=== PATIENT | male | born 1980 | race Caucasian/White ===

== ENCOUNTER 2017-11-18 20:48 | Emergency (ER) | payer MEDICAID ==
--- NOTE | 2017-11-18 21:49 | EDM.PDOC ---
ED HPI GENERAL MEDICAL PROBLEM - General Chief Complaint: Bite:Animal, Insect Stated Complaint: DOG BITE SAME DOG PRIOR Time Seen by Provider: 11/18/17 21:07 Source of Information: Reports: Patient, EMS History Limitations: Reports: No Limitations - History of Present Illness INITIAL COMMENTS - FREE TEXT/NARRATIVE: Patient is a 37-year-old male who presents to the ED complaining of a dog bite to the right forearm proximal to the elbow and also dorsal aspect of the left hand and index finger. Patient was attempting to tie up a [place] Crowe that has previously bitten another individual. The [place] Crowe bit the other individual while food was being aken away from it. Thus provoked attack. Patient states the dog is old and very temperamental. Dog is up-to-date with vaccinations although this was not documented. Per patient the vet was not able to administer the vaccination and the owner consulting engineer did. The dog is able to be quarantined. Patient has pain to the soft tissues. He has no bony tenderness noted. Able to move all joints of the affected extremities. Patient's tetanus status is not up-to-date. Pain is minimal as we speak. Bleeding controlled. Of note patient is on septra for a laceration to the MCP of the thumb. He has approximately 5 days left. Otherwise he has no additional complaints. Treatments PULVERIZER TENDER: Reports: Other (see below) Other Treatments PULVERIZER TENDER: cleaned wound with antiseptic wipe Right Arm Pain Score (Numeric/FACES): 3 Left 2-Index finger Pain Score (Numeric/FACES): 3 - Related Data Allergies Allergy/AdvReac Type Severity Reaction Status Date / Time No Known Allergies Allergy Verified 11/18/17 21:13 Home Meds: Home Meds Lisinopril [Prinivil] 20 mg PO DAILY 11/18/17 [History] Sulfamethoxazole/Trimethoprim [Septra] 1 each PO BID #14 tablet 11/18/17 [Rx] Past Medical History - Past Health History Medical/Surgical History: Denies Medical/Surgical History Cardiovascular History: Reports: Hypertension Social & Family History - Family History Family Medical History: Noncontributory - Tobacco Use Smoking Status *Q: Never Smoker Second Hand Smoke Exposure: Yes - Caffeine Use Caffeine Use: Reports: Soda, Tea - Recreational Drug Use Recreational Drug Use: No ED ROS GENERAL - Review of Systems Review Of Systems: ROS reveals no pertinent complaints other than HPI. ED EXAM, ANIMAL BITE - Physical Exam Exam: See Below Exam Limited By: No Limitations General Appearance: Alert, WD/WN, No Apparent Distress Ears: Hearing Grossly Normal Nose: Normal Inspection Throat/Mouth: Normal Voice, No Airway Compromise Neck: Normal Inspection, Supple Respiratory/Chest: No Respiratory Distress, No Accessory Muscle Use Peripheral Pulses: 4+: Radial (L), Radial (R) Extremities: Other (Right arm: Patient has multiple small puncture ignacio to the posterior aspect of the right forearm proximal to the elbow not involving the elbow. Soft tissue swelling. No bleeding present. No foreign objects noted. No bony point tenderness. Patient has full range of motion the elbow and the wrist. No other bite wounds noted to this extremity. Left hand: Patient is a bite wound noted to the proximal phalanx of the second finger on the dorsal aspect. Minimal tenderness present. Also has some puncture wounds noted to the dorsal aspect of the left hand with minimal tenderness on palpation. Bleeding is controlled. No foreign object present. Patient has full range of motion of the wrist, and fingers. Patient has a old laceration noted to the dorsal aspect at the MCP in the late stages of healing. He is on an antibiotic already.) Neurological: Alert, Oriented, CN II-XII Intact, Normal Cognition, No Motor/ Sensory Deficits Psychiatric: Normal Affect, Normal Mood Skin Exam: Normal Color, Warm/Dry Course - Vital Signs Last Recorded V/S: Last Vital Signs Temp 97.7 F 11/18/17 21:06 Pulse 88 11/18/17 21:06 Resp BP 127/82 11/18/17 21:06 Pulse Ox 97 11/18/17 21:06 - Re-Assessments/Exams Free Text/Narrative Re-Assessment/Exam: Soft tissue wounds cleansed per nursing staff. No imaging required. Patient is already on Septra. This should be adequate to cover a dog bite. Will discharge patient home with instructions as documented. Departure - Departure Time of Disposition: 21:54 Disposition: Home, Self-Care 01 Condition: Good Clinical Impression: Dog bite of extremity Dog bite Qualifiers: Encounter type: initial encounter Qualified Code(s): W54.0XXA - Bitten by dog, initial encounter - Discharge Information Prescriptions: Sulfamethoxazole/Trimethoprim [Septra] 1 each PO BID #14 tablet Instructions: Animal Bite Referrals: Isai Arizmendi MD [Primary Care Provider] - Additional Instructions: Take the full course of antibiotic as prescribed. Cleanse site twice daily with soap and water, pat dry, reapply triple antibiotic ointment, and dressing. Do not soak wound. Keep it clean and dry. Utilize Tylenol and ibuprofen as needed for any discomfort. Return to ED if he developed any new or worsening symptoms. [facility] requires quarantine at [facility] since rabies vaccination is not documented. He had 10 days to start prophylactic rabies treatment if required.
== END 2017-11-18 22:43 | disposition home or self-care (01) ==
LOC: JD.ED 20:48
DX: S51.851A Open bite of right forearm, initial encounter (principal); S61.432A Puncture wound without foreign body of left hand, initial encounter; I10 Essential (primary) hypertension; W54.0XXA Bitten by dog, initial encounter
CPT/HCPCS: 99283

== ENCOUNTER 2018-07-10 10:34 | Emergency (ER) | payer MEDICAID ==
--- NOTE | 2018-07-10 11:09 | EDM.PDOC ---
ED HPI GENERAL MEDICAL PROBLEM - General Chief Complaint: Lower Extremity Injury/Pain Stated Complaint: L FOOT INJURY Time Seen by Provider: 07/10/18 11:10 Source of Information: Reports: Patient History Limitations: Reports: No Limitations - History of Present Illness INITIAL COMMENTS - FREE TEXT/NARRATIVE: Patient is a 37-year-old male who presents ED complaining of left lateral foot pain. Patient states on Tuesday while stepping off a bobcat in the bucket he slipped hitting the left side of his foot. Pain progressively got worse over the course of the weekend. Today he has increasing pain with weightbearing and palpation. No bruising, no significant swelling, no pain noted to the remaining parts of the foot, toes, ankle, tib-fib. No sensory deficits noted. He has not taken anything for the pain as of today. Left Feet Pain Score (Numeric/FACES): 2 - Related Data Allergies Allergy/AdvReac Type Severity Reaction Status Date / Time No Known Allergies Allergy Verified 07/10/18 10:43 Home Meds: Home Meds Lisinopril [Prinivil] 20 mg PO DAILY 11/18/17 [History] Past Medical History - Past Health History Medical/Surgical History: Denies Medical/Surgical History HEENT History: Reports: Impaired Vision Cardiovascular History: Reports: Hypertension Social & Family History - Family History Family Medical History: Noncontributory - Tobacco Use Smoking Status *Q: Never Smoker - Caffeine Use Caffeine Use: Reports: Soda - Recreational Drug Use Recreational Drug Use: No Review of Systems - Review of Systems Review Of Systems: ROS reveals no pertinent complaints other than HPI. ED EXAM, GENERAL - Physical Exam Exam: See Below Exam Limited By: No Limitations General Appearance: Alert, WD/WN, No Apparent Distress Ears: Hearing Grossly Normal Nose: Normal Inspection Throat/Mouth: Normal Inspection, Normal Voice, No Airway Compromise Neck: Normal Inspection, Supple Respiratory/Chest: No Respiratory Distress, No Accessory Muscle Use Cardiovascular: Normal Peripheral Pulses, Regular Rate, Rhythm Peripheral Pulses: 2+: Posterior Tibial (L) Extremities: Other (On examination of the left foot no swelling, no bony abnormalities, no redness, no rash present. With palpation there is pain along the fifth metatarsal and MTP. No pain to the left fifth toe with palpation. He is able to flex and extend the toes with no difficulties. Pain noted to the plantar aspect of the foot along the fifth metatarsal and MTP. No pain noted with palpation the radial aspects of the foot, ankle, tib-fib) Neurological: Alert, Oriented, CN II-XII Intact, Normal Cognition, No Motor/ Sensory Deficits Psychiatric: Normal Affect, Normal Mood Skin Exam: Warm, Dry, Intact, Normal Color, No Rash Course - Vital Signs Last Recorded V/S: Last Vital Signs Temp 96.9 F 07/10/18 10:44 Pulse 71 07/10/18 10:44 Resp 18 07/10/18 10:44 BP 148/95 H 07/10/18 10:44 Pulse Ox 97 07/10/18 10:44 - Re-Assessments/Exams Free Text/Narrative Re-Assessment/Exam: Will obtain x-ray of the left foot. Suspect contusion/sprain. X-ray of the left foot reviewed with Dr. Mcneil with no acute bony abnormalities noted. Final interpretation is pending. Patient does have a walking boot and crutches at home. Discharge instructions as documented. Departure - Departure Time of Disposition: 11:58 Disposition: Home, Self-Care 01 Condition: Good Clinical Impression: Contusion of foot, left Qualifiers: Encounter type: initial encounter Qualified Code(s): S90.32XA - Contusion of left foot, initial encounter - Discharge Information Instructions: Foot Sprain, Foot Contusion Referrals: Isai Arizmendi MD [Primary Care Provider] - Forms: ED Department Discharge Additional Instructions: You are to be nonweightbearing, toe-touch only, utilize crutches to ambulate. Elevate when able to reduce any swelling and pain. Apply ice to the affected area 3-4 times a day, 20 minutes in duration, do not apply ice directly on the skin. Utilize Tylenol and ibuprofen in alternating fashion for pain. Advance weight as tolerated over the next 3-5 days. Follow-up with orthopedic surgeon of your choice if pain persists past 7-10 days. Return to the ED if you develop any new or worsening symptoms.
--- NOTE | 2018-07-10 12:05 | CR ---
Left foot: Four views of the left foot were obtained. Comparison: No previous study. Small plantar spur is seen. Mild bunion deformity is seen. No acute fracture, dislocation or other bony abnormality is seen. Impression: 1. Incidental findings as noted above. Diagnostic code #2
== END 2018-07-10 12:10 | disposition home or self-care (01) ==
LOC: JD.ED 10:34
DX: S90.32XA Contusion of left foot, initial encounter (principal); I10 Essential (primary) hypertension; Z79.899 Other long term (current) drug therapy; W22.8XXA Striking against or struck by other objects, initial encounter
CPT/HCPCS: 73630-26-LT; 73630-LT; 99282; 99283

== ENCOUNTER 2019-08-27 19:12 | Emergency (ER) | payer SELFPAY ==
[2019-08-27] MEDS ORDERED: HYDROmorphone 0.5 MG/0.5 ML Syringe IVPUSH ONE ×2 (21:28→23:02)
[2019-08-27] MEDS ORDERED: Ondansetron 4 MG/2 ML SDV IVPUSH ONE (21:28)
[2019-08-27] MEDS ORDERED: Sodium Chloride 0.9% 1,000 ML IV SCH (21:30)
--- NOTE | 2019-08-27 21:38 | EDM.PDOC ---
ED HPI GENERAL MEDICAL PROBLEM - General Chief Complaint: Abdominal Pain Stated Complaint: SIDE PAIN Time Seen by Provider: 08/27/19 21:10 Source of Information: Reports: Patient, Family () History Limitations: Reports: No Limitations - History of Present Illness INITIAL COMMENTS - FREE TEXT/NARRATIVE: Mr. Jha is a very pleasant 38-year-old man with a past medical history significant for obesity, chronic lower back pain, depression, and hypertension, who states that he has had bright red blood, only when he wipes, with no blood in the toilet, twice over the past week, with the most recent episode about 3 days ago. He states that he had watery diarrhea for 3 days, but it is now normal. No recent constipation. He has had generalized malaise and a fever on and off for the past 4 days, with a Tmax of 103 degrees on Tuesday morning, 2019. He has not had rhinorrhea, a cough, a sore throat, or an earache. No abdominal pain or urinary symptoms. No lightheadedness or dyspnea. He now presents to the ED after coughing earlier tonight, inducing right upper quadrant pain. It resolved, but he coughed again, re-inducing the same right upper quadrant pain which has persisted ever since. It is constant, and sharp in character. It is made worse with certain movements, but is present even if he remains still. Prior similar symptoms. The patient did not take any [id number] or home remedies prior to coming to the ED. His last solid and liquid oral intake was around 18:45. The patient's PCP is Dr. Isai Arizmendi. He did not receive an influenza vaccine, and declined an offer to receive one here today. Right Abdomen Pain Score (Numeric/FACES): 8 - Related Data Allergies Allergy/AdvReac Type Severity Reaction Status Date / Time No Known Allergies Allergy Verified 07/10/18 10:43 Home Meds: Home Meds lisinopriL [Prinivil] 20 mg PO DAILY 11/18/17 [History] Cyclobenzaprine [Flexeril] 10 mg PO BEDTIME PRN 08/27/19 [History] DULoxetine [Cymbalta] 30 mg PO DAILY 08/27/19 [History] Acetaminophen/HYDROcodone [Canones 325-5 MG] 1 - 2 tab PO Q6H PRN #24 tablet 08/28 [Rx] Ondansetron [Zofran ODT] 1 tab PO Q8H PRN #10 tab.dis 08/28/19 [Rx] Past Medical History HEENT History: Reports: Impaired Vision Cardiovascular History: Reports: Hypertension Psychiatric History: Reports: Depression Endocrine/Metabolic History: Reports: Obesity/BMI 30+ - Past Surgical History Musculoskeletal Surgical History: Reports: Other (See Below) (Metal foreign body removed from left forearm) Social & Family History - Family History Family Medical History: Noncontributory - Tobacco Use Smoking Status *Q: Never Smoker - Caffeine Use Caffeine Use: Reports: Soda - Alcohol Use Alcohol Use History: Yes Alcohol Use Frequency: Socially - Recreational Drug Use Recreational Drug Use: No - Living Situation & Occupation Living situation: Reports: , with Spouse, with Family (3 kids), Other ( Nanny) Occupation: 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 Musculoskeletal: Reports: Back Pain ED EXAM, GI/ABD - Physical Exam Exam: See Below Exam Limited By: No Limitations General Appearance: Alert, WD/WN, No Apparent Distress Eyes: Bilateral: Normal Appearance, EOMI Ears: Normal External Exam, Hearing Grossly Normal Nose: Normal Inspection Throat/Mouth: Normal Inspection, Normal Lips, Normal Voice, No Airway Compromise Head: Atraumatic, Normocephalic Neck: Normal Inspection, Full Range of Motion Respiratory/Chest: No Respiratory Distress, Lungs Clear, Normal Breath Sounds, No Accessory Muscle Use, Chest Non-Tender (including the lower right ribs). No : Decreased Breath Sounds, Crackles, Rhonchi, Wheezing, Stridor, Pleural Rub, Prolonged Expiration Cardiovascular: Normal Peripheral Pulses, Regular Rate, Rhythm, No Gallop, No JVD, No Murmur, No Rub GI/Abdominal Exam: Normal Bowel Sounds, Soft, No Organomegaly, No Distention, No Abnormal Bruit, No Mass, Tender (Right upper quadrant only. Nontender elsewhere. Black sign present.) (Male) Exam: Deferred Rectal (Males) Exam: Normal Exam, Normal Rectal Tone, Heme - Stool. No: Tenderness Back Exam: Normal Inspection, Full Range of Motion, Other (No tenderness to palpation inferior to his right scapula, where he indicates the pain radiates to ). No: CVA Tenderness (L), CVA Tenderness (R) Extremities: Normal Inspection, Normal Range of Motion, No Pedal Edema, Normal Capillary Refill Neurological: Alert, Oriented, Normal Cognition, No Motor/Sensory Deficits Psychiatric: Normal Affect Skin Exam: Warm, Dry, Intact, Normal Color, No Rash Course - Vital Signs Last Recorded V/S: Last Vital Signs Temp 36.3 C 08/27/19 19:22 Pulse 89 08/27/19 19:22 Resp 18 08/27/19 19:22 BP 183/99 H 08/27/19 19:22 Pulse Ox 95 08/27/19 19:22 - Orders/Labs/Meds Orders: Active Orders 24 hr Category Date Time Status Hemoccult [Fecal Occult Blood Collection] [RC] Care 08/27/19 21:37 Active ASDIRECTED Abdomen Pelvis w Cont [CT] Stat Exams 08/27/19 21:27 Taken Sodium Chloride 0.9% [Normal Saline] 1,000 ml Med 08/27/19 21:30 Active IV ASDIRECTED Medication Orders Sodium Chloride (Normal Saline) 1,000 mls @ 150 mls/hr IV ASDIRECTED [place] Last Admin: 08/27/19 21:41 Dose: 150 mls/hr Labs: Laboratory Tests 08/27/19 08/27/19 Range/Units 20:18 20:18 WBC 8.50 (4.23-9.07) K/mm3 RBC 4.68 (4.63-6.08) M/mm3 Hgb 14.1 (13.7-17.5) gm/dl Hct 41.7 (40.1-51.0) % MCV 89.1 D (79.0-92.2) fl MCH 30.1 (25.7-32.2) pg MCHC 33.8 (32.2-35.5) g/dl RDW Std Deviation 42.5 (35.1-43.9) fL Plt Count 303 (163-337) K/mm3 MPV 9.5 (9.4-12.3) fl Neut % (Auto) 59.9 (34.0-67.9) % Lymph % (Auto) 29.4 (21.8-53.1) % [place] % (Auto) 8.4 (5.3-12.2) % Eos % (Auto) 1.3 (0.8-7.0) Baso % (Auto) 0.6 (0.1-1.2) % Neut # (Auto) 5.10 (1.78-5.38) K/mm3 Lymph # (Auto) 2.50 (1.32-3.57) K/mm3 [place] # (Auto) 0.71 (0.30-0.82) K/mm3 Eos # (Auto) 0.11 (0.04-0.54) K/mm3 Baso # (Auto) 0.05 (0.01-0.08) K/mm3 Sodium 140 (136-145) mEq/L Potassium 3.8 (3.5-5.1) mEq/L Chloride 100 (98-107) mEq/L Carbon Dioxide 26 (21-32) mEq/L Anion Gap 17.8 H (5-15) BUN 12 (7-18) mg/dL Creatinine 1.0 (0.7-1.3) mg/dL Est Cr Clr Drug Dosing 101.39 mL/min Estimated GFR (MDRD) > 60 (>60) mL/min BUN/Creatinine Ratio 12.0 L (14-18) Glucose 160 H (74-106) mg/dL Calcium 9.5 (8.5-10.1) mg/dL Total Bilirubin 0.2 (0.2-1.0) mg/dL AST 18 (15-37) U/L ALT 57 (16-63) U/L Alkaline Phosphatase 60 (46-116) U/L Total Protein 8.4 H (6.4-8.2) g/dl Albumin 4.3 (3.4-5.0) g/dl Globulin 4.1 gm/dL Albumin/Globulin Ratio 1.1 (1-2) Meds: Medications Generic Name Dose Route Start Last Admin Trade Name Freq PRN Reason Stop Dose Admin Sodium Chloride 1,000 mls @ 150 mls/hr 08/27/19 21:30 08/27/19 21:41 Normal Saline IV 150 mls/hr ASDIRECTED [place] Administration Discontinued Medications Generic Name Dose Route Start Last Admin Trade Name Freq PRN Reason Stop Dose Admin Diatrizoate Meglum/Diatrizoate Sod 90 ml 08/27/19 22:44 08/27/19 22:59 Gastrografin 37% PO 08/27/19 22:45 90 ml ONETIME ONE Administration Hydromorphone HCl 0.5 mg 08/27/19 21:28 08/27/19 21:43 Dilaudid IVPUSH 08/27/19 21:29 0.5 mg ONETIME ONE Administration Hydromorphone HCl 0.5 mg 08/27/19 23:02 08/27/19 23:12 Dilaudid IVPUSH 08/27/19 23:03 0.5 mg ONETIME ONE Administration Iopamidol 100 ml 08/27/19 22:44 08/27/19 22:59 Isovue-300 (61%) IVPUSH 08/27/19 22:45 100 ml ONETIME ONE Administration Ondansetron HCl 4 mg 08/27/19 21:28 08/27/19 21:41 Zofran IVPUSH 08/27/19 21:29 4 mg ONETIME ONE Administration - Re-Assessments/Exams Free Text/Narrative Re-Assessment/Exam: 08/27/19 21:29 As above, the patient developed right upper quadrant pain that radiates through to his right infrascapular area when he coughed. It resolved, only to recur and persist after he coughed a second time. On examination, he is tender to his right upper quadrant, and nontender elsewhere. Additionally, his Black sign is present. He can identify the area of radiation infrascapularly on the right, but has no tenderness there. His presentation is very suspicious for cholecystitis. I am therefore recommending that we check some blood work and a CT scan of his abdomen and pelvis with oral and IV contrast, not only to be certain that he does not have an abdominal wall hematoma, but also to rule out other potential causes. We will also check an influenza swab, given the patient 's report of recent history. In the meantime, the patient will receive a half dose of Dilaudid - his tells me that he does not do well with pain medications, along with IV Zofran and IV fluid. 08/27/19 22:33 The patient CBC is unremarkable. His CMP is remarkable for an anion gap slightly elevated at 17.8, but with a bicarbonate normal at 26. His blood glucose is elevated at 160, with the remainder of his CMP being unremarkable. His influenza swab returned negative. 08/28/19 00:10 CT of the abdomen and pelvis with oral and IV contrast as read by [facility] as "No sign of acute intra-abdominal pathology." 08/28/19 00:23 Test results discussed with the patient and his . As above, zaynab's work- up was unremarkable, with the exception of a blood glucose of 160. I suspect that the patient is suffering from biliary colic, a suspicion buttressed by the fact that his CT scan was negative, ruling out other potential causes. The patient will be discharged home with prescriptions for Canones and Zofran. I am recommending that he eat as low-fat a diet as he can tolerate. I will refer him to Dr. Trejo for further evaluation that will likely include an ultrasound of the right upper quadrant and a HIDA scan. With respect to the patient's elevated blood glucose, either has diabetes or prediabetes. I will direct the patient to the [place] [employer] website so that he can learn about and apply a low glycemic index diet, and have him follow-up with his PCP for a HgbA1c. Departure - Departure Time of Disposition: 00:25 Disposition: Home, Self-Care 01 Condition: Good Clinical Impression: Right upper quadrant abdominal pain of unknown etiology, Hyperglycemia - Discharge Information *PRESCRIPTION DRUG MONITORING PROGRAM REVIEWED*: Not Applicable *COPY OF PRESCRIPTION DRUG MONITORING REPORT IN PATIENT [facility]: Not Applicable Prescriptions: Acetaminophen/HYDROcodone [Canones 325-5 MG] 1 - 2 tab PO Q6H PRN #24 tablet PRN Reason: Pain (Severe 7-10) Ondansetron [Zofran ODT] 1 tab PO Q8H PRN #10 tab.dis PRN Reason: Nausea/Vomiting Referrals: Isai Arizmendi MD [Primary Care Provider] - Willie Trejo MD [Physician] - Forms: ED Department Discharge Additional Instructions: You were seen in the emergency room for upper right abdominal pain radiating through to your mid right back, after coughing, along with a fever since Tuesday morning. Work-up in the ER included blood work, an influenza swab, and a CT scan of your abdomen and pelvis with oral and IV contrast. Your blood work found your blood sugar to be elevated at 160. Otherwise, your work-up was entirely unremarkable. You do not have influenza. You do not have an abdominal wall hematoma. Based on your history, physical exam, and ER tests, your abdominal pain is most likely due to biliary colic. As discussed, diagnosing biliary disease can be difficult, even if you have severe disease. More testing is necessary. We recommend that you eat a low-fat diet as you can tolerate. Stay adequately hydrated. You may take 1 to 2 tablets of the opioid pain reliever Canones up to every 6 hours, as needed for pain. If you take Canones, do not drive or operate heavy machinery for 12 hours afterwards. Canones may cause constipation, so consider taking a stool softener. You may dissolve 1 tablet of the anti-nausea medicine Zofran on your tongue up to every 8 hours, as needed for nausea/vomiting. Follow-up with the Surgeon Dr. Willie Trejo at the next available appointment , for further evaluation of your gallbladder. As discussed, your elevated blood sugar indicates that you either have prediabetes or real diabetes. We recommend that you go to the [place] [employer] website and look under the section "Nutrition" to learn about and start eating a diabetic diet, also known as a low glycemic index diet. Please follow-up with your PCP, Dr. Isai Arizmendi at the next available appointment, for further evaluation of your high blood sugar. If any other problems, please do not hesitate to return to the ER. Sepsis Event Note - Evaluation Sepsis Screening Result: No Definite Risk - Focused Exam Vital Signs: Vital Signs Temp Pulse Resp BP Pulse Ox 08/27/19 19:22 36.3 C 89 18 183/99 H 95 Date Exam was Performed: 08/28/19 Time Exam was Performed: 00:10 - My Orders Last 24 Hours: My Active Orders 08/27/19 21:27 Abdomen Pelvis w Cont [CT] Stat 08/27/19 21:30 Sodium Chloride 0.9% [Normal Saline] 1,000 ml IV ASDIRECTED 08/27/19 21:37 Hemoccult [Fecal Occult Blood Collection] [RC] ASDIRECTED - Assessment/Plan Last 24 Hours: My Active Orders 08/27/19 21:27 Abdomen Pelvis w Cont [CT] Stat 08/27/19 21:30 Sodium Chloride 0.9% [Normal Saline] 1,000 ml IV ASDIRECTED 08/27/19 21:37 Hemoccult [Fecal Occult Blood Collection] [RC] ASDIRECTED
[2019-08-27] MEDS ORDERED: Diatrizoate Meglumine/Diatrizoate Sodium 37% 120 ML Bottle PO ONE (22:44)
[2019-08-27] MEDS ORDERED: Iopamidol 612 MG/ML 100 ML Bottle IVPUSH ONE (22:44)
[2019-08-28] MEDS ORDERED: HYDROmorphone 1 MG/ML Syringe IVPUSH ONE (00:23)
--- NOTE | 2019-08-28 07:20 | CT ---
CT abdomen and pelvis Technique: Multiple axial sections were obtained from above the dome of the diaphragm inferiorly through the pubic symphysis. Intravenous and oral contrast has been given. Delayed images were also obtained through the pelvis. Comparison: No prior abdominal imaging. Findings: Visualized lung bases show minimal atelectasis. Nothing acute is appreciated. Liver contains fatty infiltration without focal abnormality. Spleen appears within normal limits. Adrenal glands show no nodule. Pancreas is within normal limits. Gallbladder contains no calcified gallstones. Kidneys show symmetric contrast enhancement. Small cyst is noted within the lower right kidney. This abnormality measures 6 mm and is too small to obtain accurate Hounsfield unit measurements. No additional kidney abnormality is appreciated. Aorta shows no aneurysm. No retroperitoneal adenopathy or mesenteric abnormalities are seen. Appendix is seen which is normal in size. No pelvic mass or adenopathy is identified. Delayed images show contrast within the distal ureters and within the bladder. No free fluid or inflammatory change is identified. Bone window settings were reviewed which appear within normal limits for the patient's age. Small fat-containing umbilical hernia is noted. Impression: 1. Fatty infiltration within the liver. Small fat-containing umbilical hernia. Nonspecific 6 mm abnormality within the right kidney, statistically most likely due to a cyst. 2. Nothing acute is appreciated on CT study of the abdomen and pelvis. Diagnostic code #2 This report was dictated in Mountain Standard Time I agree with preliminary report from [facility], finalized on 08/28/19, 12:40 AM Central Time
== END 2019-08-28 00:46 | disposition home or self-care (01) ==
LOC: JD.ED 19:12
DX: R10.11 Right upper quadrant pain (principal); R73.9 Hyperglycemia, unspecified; I10 Essential (primary) hypertension; E66.9 Obesity, unspecified; F32.9 Major depressive disorder, single episode, unspecified; Z79.899 Other long term (current) drug therapy
CPT/HCPCS: 36415; 74177; 80053; 85025; 87804; 96361; 96374; 96375; 96376; 99284; J1170; J2405; J7030; Q9963; Q9967

== ENCOUNTER 2019-09-05 07:14 | Day surgery (SDC) | payer SELFPAY ==
[~2019-09-05 07:14] MED LIST: Lactated Ringers 1,000 ML IV SCH; Lidocaine 1%/Sod Bicarbonate in NS 8.4% 1 ML Syringe IDERM PRN; Sodium Chloride 0.9% 10 ML Syringe FLUSH PRN
[2019-09-05] MEDS ORDERED: Lidocaine 1% 4 ML ONE (07:22)
[2019-09-05] MEDS ORDERED: fentaNYL 100 MCG/2 ML SDV ONE (07:22)
[2019-09-05] MEDS ORDERED: Midazolam 1 MG/ML 2 ML SDV ONE (07:22)
[2019-09-05] MEDS ORDERED: Propofol 200 MG/20 ML SDV ONE ×3 (07:22→08:21)
--- NOTE | 2019-09-05 07:39 | PCM.PREANE ---
Preanesthetic Assessment - Procedure Proposed Procedure: Egd/Colonoscopy - Anesthesia/Transfusion/Family Hx Anesthesia History: Prior Anesthesia Without Reaction Family History of Anesthesia Reaction: No Transfusion History: No Prior Transfusion(s) - Review of Systems General: No Symptoms Pulmonary: No Symptoms Cardiovascular: No Symptoms Gastrointestinal: Abdominal Pain Neurological: No Symptoms Other: Reports: None - Physical Assessment NPO Status Date: 09/04/19 NPO Status Time: 00:00 Height: 1.8 m Weight: 135.624 kg ASA Class: 2 Mental Status: Alert & Oriented x3 Airway Class: Mallampati = 1 Dentition: Reports: Normal Dentition Thyro-Mental Finger Breadths: 3 Mouth Opening Finger Breadths: 3 ROM/Head Extension: Full Lungs: Clear to Auscultation, Normal Respiratory Effort Cardiovascular: Regular Rate, Regular Rhythm - Allergies Allergies/Adverse Reactions: Allergies Allergy/AdvReac Type Severity Reaction Status Date / Time No Known Allergies Allergy Verified 07/10/18 10:43 - Blood Blood Available: No Product(s) Available: None - Anesthesia Plan Pre-Op Medication Ordered: None - Acknowledgements Anesthesia Type Planned: MAC Pt an Appropriate Candidate for the Planned Anesthesia: Yes Alternatives and Risks of Anesthesia Discussed w Pt/Guardian: Yes Pt/Guardian Understands and Agrees with Anesthesia Plan: Yes PreAnesthesia Questionnaire - Past Health History Medical/Surgical History: Denies Medical/Surgical History HEENT History: Reports: Impaired Vision Cardiovascular History: Reports: Hypertension Respiratory History: Reports: None Gastrointestinal History: Reports: None Genitourinary History: Reports: None LIME BURNER History: Reports: None Musculoskeletal History: Reports: None Neurological History: Reports: None Psychiatric History: Reports: Anxiety, Depression Endocrine/Metabolic History: Reports: Obesity/BMI 30+ Hematologic History: Reports: None Immunologic History: Reports: None Oncologic (Cancer) History: Reports: None Dermatologic History: Reports: None - Infectious Disease History Infectious Disease History: Reports: None - Past Surgical History Head Surgeries/Procedures: Reports: None Cardiovascular Surgical History: Reports: None Respiratory Surgical History: Reports: None GI Surgical History: Reports: None Female Surgical History: Reports: None Male Surgical History: Reports: None Endocrine Surgical History: Reports: None Neurological Surgical History: Reports: None Musculoskeletal Surgical History: Reports: Other (See Below) Other Musculoskeletal Surgeries/Procedures:: LEFT FOREIGN BODY REMOVAL Oncologic Surgical History: Reports: None Dermatological Surgical History: Reports: None - SUBSTANCE USE Smoking Status *Q: Never Smoker Tobacco Use Within Last Twelve Months: No Second Hand Smoke Exposure: Yes Days Per Week of Alcohol Use: 0 Number of Drinks Per Day: 1 Total Drinks Per Week: 0 Recreational Drug Use History: No - HOME MEDS Home Medications: Home Meds Cyclobenzaprine [Flexeril] 10 mg PO BEDTIME PRN 08/27/19 [History] DULoxetine [Cymbalta] 30 mg PO BID 08/27/19 [History] Acetaminophen/HYDROcodone [[place] 325-5 MG] 1 - 2 tab PO Q6H PRN #24 tablet 08/28 [Rx] Lisinopril/Hydrochlorothiazide [Lisinopril-Hctz 20-25 mg Tab] 1 tab PO DAILY 09/20 [History] Ondansetron [Zofran ODT] 1 tab PO Q4H PRN 09/04/19 [History] - CURRENT (IN HOUSE) MEDS Current Meds: Current Medications Lactated Ringer's (Ringers, Lactated) 1,000 mls @ 125 mls/hr IV ASDIRECTED [place] Stop: 09/05/19 23:00 Lidocaine/Sodium Bicarbonate (Buffered Lidocaine 1% In Ns 8.4%) 0.25 ml IDERM ONETIME PRN PRN Reason: Prior to IV Start Stop: 09/05/19 18:00 Sodium Chloride (Saline Flush) 10 ml FLUSH ASDIRECTED PRN PRN Reason: Keep Vein Open Stop: 09/05/19 18:00 Discontinued Medications Fentanyl (Sublimaze) Confirm Administered Dose 100 mcg .ROUTE .STK-MED ONE Stop: 09/05/19 07:23 Lidocaine HCl (Xylocaine-Mpf 1%) Confirm Administered Dose 4 mls @ as directed .ROUTE .STK-MED ONE Stop: 09/05/19 07:23 Midazolam HCl (Versed 1 Mg/Ml) Confirm Administered Dose 2 mg .ROUTE .STK-MED ONE Stop: 09/05/19 07:23 Propofol (Diprivan 20 Ml) Confirm Administered Dose 200 mg .ROUTE .STK-MED ONE Stop: 09/05/19 07:23
[2019-09-05] MEDS ORDERED: Labetalol 100 MG/20 ML MDV ONE (08:24)
[2019-09-05] MEDS ORDERED: Lactated Ringers 1,000 ML ONE (08:55)
--- NOTE | 2019-09-05 09:08 | PCM48HPAN ---
Post Anesthesia Note - EVALUATION WITHIN 48HRS OF ANESTHETIC Vital Signs in Normal Range: Yes Patient Participated in Evaluation: Yes Respiratory Function Stable: Yes Airway Patent: Yes Cardiovascular Function Stable: Yes Hydration Status Stable: Yes Pain Control Satisfactory: Yes Nausea and Vomiting Control Satisfactory: Yes Mental Status Recovered: Yes Vital Signs: Last Vital Signs Temp 36.2 C 09/05/19 07:25 Pulse 77 09/05/19 07:25 Resp 16 09/05/19 07:25 BP 147/86 H 09/05/19 07:25 Pulse Ox 95 09/05/19 07:25 - COMMENTS/OBSERVATIONS Free Text/Narrative:: no anesthesia complications noted
--- NOTE | 2019-09-05 09:09 | PCM.OPNOTE ---
- General Post-Op/Procedure Note Date of Surgery/Procedure: 09/05/19 Operative Procedure(s): EGD with biopsy and colonoscopy with polypectomy and random colon biopsies Findings: 1. Agee's esophagus changes 2. Gastritis 3. Gastric polyps 4. Duodenitis 5. Colon polyps Pre Op Diagnosis: abdominal pain, diarrhea and rectal bleeding Post-Op Diagnosis: same Anesthesia Technique: [facility] Primary Surgeon: Sharlene Everett Anesthesia Provider: Chivo Negron Pathology: 1. Duodenal biopsy 2. Gastric antrum biopsy 3. Gastric antrum polyp biopsy 4. GE junction biopsy 5. Ascending colon biopsies 6. Transverse colon biopsies 7. Descending colon biopsies 9. Sigmoid colon biopsies 10. Rectal biopsies 11. Descending colon polyp 12 Rectal polyps x5 Output, Urine Amount: 0 EBL in mLs: 0 Complications: none apparent Condition: Good
--- NOTE | 2019-09-05 09:27 | PCM.PRNOTE ---
- Free Text/Narrative Note: Operative Report Date of Procedure: September 05, 2019 Pre Op Diagnosis: Right upper quadrant abdominal pain, diarrhea and rectal bleeding Post-Op Diagnosis: Same Operative Procedures: 1. EGD with biopsy 2. Colonoscopy to the cecum with biopsy Primary Surgeon: Sharlene Everett MD Anesthesia Provider: Chivo Negron CRNA Anesthesia Technique: MAC IV Fluid Replacement, Intraop: See anesthesia record Output, Urine Amount: 0cc EBL in mLs: 0cc Findings: 1. Agee's esophagus changes 2. Gastritis 3. Gastric polyps 4. Duodenitis 5. Colon polyps Specimens: 1. Duodenal biopsy 2. Gastric antrum biopsy 3. Gastric antrum polyp biopsy 4. GE junction biopsy 5. Ascending colon biopsies 6. Transverse colon biopsies 7. Descending colon biopsies 9. Sigmoid colon biopsies 10. Rectal biopsies 11. Descending colon polyp 12 Rectal polyps x5 Drain/Tubes: None Indication: The patient is a 38-year-old gentleman who presented to the clinic with complaints of right upper quadrant abdominal pain. The patient reported symptoms of diarrhea, rectal bleeding and fever. The patient was consented for a diagnostic EGD and colonoscopy. Risks of bleeding, and perforation were discussed, and the patient agreed to the risks and wished to proceed. Description of the procedure: The patient was taken back to the endoscopy suite, and placed in the left lateral decubitus position. A bite block was placed. The patient was sedated with MAC anesthesia. The Olympus video endoscope was inserted into the oropharynx and guided under direct vision into the esophagus, stomach, and duodenum. The duodenal bulb showed erythema consistent with duodenitis, and in the second portion of the duodenum there was evidence of villous flattening. Biopsies were taken in the duodenum with a jumbo cold biopsy forceps. The gastric antrum was inspected and umbo cold biopsy forceps were used to take tissue samples for H. pylori. There were 3 polypoid appearing areas in the antrum. This tissue was biopsied using a jumbo cold biopsy forceps. The scope was withdrawn to the stomach and retroflexed. There was increased clear fluid in the body of the stomach with evidence of patchy erythema throughout the stomach consistent with gastritis. No erosions or ulcers were noted. The scope was withdrawn to the esophagus. Barretts esophagus changes were noted with irregularity of the GE junction. Biopsies were taken of the GE junction in 4 quadrants using a jumbo cold biopsy forceps. The endoscope was then withdrawn. Next, anorectal examination was performed. No lesions, masses or hemorrhoids were noted externally or on palpation. The scope was placed into the rectum and advanced to cecum. Upon reaching the cecum, and the patients cecum was entered. There was minimal tortuosity of the colon. The ileocecal valve was well visualized and the appendiceal orifice identified. At this point, the scope was slowly withdrawn, paying attention to the mucosa. The patient had adequate bowel prep, 65-75% of the mucosa was visible. Residual mucoid stool was noted coating the majority of the colon, but large polyps (5mm or greater) were still visible. Random colon biopsies were taken throughout the colon with a jumbo cold biopsy forceps: biopsies were taken in the ascending colon, transverse colon, descending colon, sigmoid colon, and rectum. A 5 mm sessile polyp was removed from the descending colon using a jumbo cold biopsy forceps. There were three rectal flat polyps noted measuring 2 to 3 mm, and these were removed using a jumbo cold biopsy forceps. Additionally 2 flat 2 mm polyps were noted in the rectum and removed with a jumbo cold biopsy forceps. The scope was them retroflexed and some hemorrhoidal tissue was noted. The scope was removed. The patient tolerated the procedure very well. Complications: None apparent Condition: The patient was transported to PACU in stable condition. Sharlene Everett MD General Surgery
== END 2019-09-05 09:54 | disposition home or self-care (01) ==
LOC: JD.SDS 07:14
PROVIDERS: ATTEND Surgery
DX: K62.1 Rectal polyp (principal); K63.5 Polyp of colon; K29.50 Unspecified chronic gastritis without bleeding; K31.89 Other diseases of stomach and duodenum; K29.80 Duodenitis without bleeding; Q43.8 Other specified congenital malformations of intestine; K64.9 Unspecified hemorrhoids; I10 Essential (primary) hypertension; F41.9 Anxiety disorder, unspecified; F32.9 Major depressive disorder, single episode, unspecified; E66.9 Obesity, unspecified; Z68.42 Body mass index [BMI] 45.0-49.9, adult; Z79.899 Other long term (current) drug therapy
CPT/HCPCS: 43239; 45380; J2001; J2250; J2704; J3010; J3490; J7120; 00813

== ENCOUNTER 2022-02-06 18:40 | Emergency (ER) | payer MEDICAID ==
[2022-02-06] MEDS ORDERED: Fluorescein 1 MG Ophth Strip EYEBOTH ONE (19:11)
[2022-02-06] MEDS ORDERED: Polymyxin B/Trimethoprim 10 ML Bottle EYELF ONE (19:38)
== END 2022-02-06 19:57 | disposition home or self-care (01) ==
LOC: JD.ED 18:40
DX: H10.9 Unspecified conjunctivitis (principal); I10 Essential (primary) hypertension; E66.9 Obesity, unspecified; Z68.41 Body mass index [BMI] 40.0-44.9, adult; Z79.899 Other long term (current) drug therapy
CPT/HCPCS: 99283

== ENCOUNTER 2022-02-07 22:26 | Emergency (ER) | payer SELFPAY ==
[2022-02-07] MEDS ORDERED: Fluorescein 1 MG Ophth Strip EYEBOTH ONE (23:17)
[2022-02-08] MEDS ORDERED: Ketorolac 0.5% Ophth Soln 5 ML Bottle ONE (00:05)
[2022-02-08] MEDS ORDERED: Ketorolac 0.5% Ophth Soln 5 ML Bottle EYELF SCH (09:00)
== END 2022-02-08 00:10 | disposition home or self-care (01) ==
LOC: JD.ED 22:26
DX: H10.9 Unspecified conjunctivitis (principal); I10 Essential (primary) hypertension; E66.9 Obesity, unspecified; Z68.41 Body mass index [BMI] 40.0-44.9, adult; Z79.899 Other long term (current) drug therapy
CPT/HCPCS: 99282; A9270

== ENCOUNTER 2022-07-11 20:07 | Emergency (ER) | payer MEDICAID ==
[2022-07-11] MEDS ORDERED: HYDROmorphone 0.5 MG/0.5 ML Syringe IVPUSH ONE (20:44)
[2022-07-11] MEDS ORDERED: Sodium Chloride 0.9% 1,000 ML IV STA (20:44)
[2022-07-11] MEDS ORDERED: Ondansetron 4 MG/2 ML SDV IVPUSH ONE (20:44)
[2022-07-11] MEDS ORDERED: Iopamidol 612 MG/ML 100 ML Bottle IVPUSH ONE (21:49)
== END 2022-07-11 22:25 | disposition home or self-care (01) ==
LOC: JD.ED 20:07
DX: M54.6 Pain in thoracic spine (principal); I10 Essential (primary) hypertension; E66.9 Obesity, unspecified; Z68.42 Body mass index [BMI] 45.0-49.9, adult; Z79.899 Other long term (current) drug therapy
CPT/HCPCS: 71260; 74177; 96361; 96374; 96375; 99283; J1170; J2405; J7030